=== PATIENT | female | born 1995 | race Caucasian/White ===

== ENCOUNTER → 2021-01-28 19:15 | Outpatient (BNVA) | payer OTHER, SELFPAY | PROVIDERS: Visit Provider Nurse Practitioner Family | DX: Z20.822 Contact with and (suspected) exposure to COVID-19 (principal) | CPT/HCPCS: 87635 ==

== ENCOUNTER → 2021-08-06 17:06 | Outpatient (BNVA) | payer MEDICAID, SELFPAY | PROVIDERS: PCP Family Medicine; Visit Provider Emergency Medicine | DX: Z20.822 Contact with and (suspected) exposure to COVID-19 (principal) | CPT/HCPCS: 87635 ==

== ENCOUNTER 2022-07-06 16:04 | Inpatient (IN) | payer MEDICAID, SELFPAY ==
[2022-07-06 16:06] VITALS: BP 101/70; PULSE 75; RESP 18; TEMP 36.5; O2SAT 99; BMI 20.3
--- NOTE | 2022-07-06 17:12 | ED.C_ITS ---
HPI - Psych General: Chief Complaint: Psychiatric Symptoms Stated Complaint: Psych Eval Time Seen by Provider: 07/06/22 16:25 Source: patient Mode of arrival: ambulatory Limitations: no limitations History of Present Illness: This patient has made her way to the emergency department because she is feeling quite overwhelmed sad and very depressed and not able to gain any pleasure from normal life activity. She states the symptoms seemingly have become much worse over the past 6 weeks. She relates t hem coincidently with the of her grandmother. She has had a rather storied past and tells me that she had approximately 5 children who have no all been adopted out because of her poor life choices. She previously used methamphetamines pretty heavily but states that she has not been using them regularly for quite a while. She does smoke marijuana occasionally but denies any alcohol or other street drugs. She is currently now and has a supportive spouse but as noted above seemingly cannot get any pleasure out of any life activities, has decreased her appetite and her food intakes because it does not taste well and does not sleep well. She states that she has had fleeting thoughts of if she was not around things will be better but she has no specific plan on self-harm. MD complaint: feels depressed Duration: getting worse History of same: No Context: significant life stressor Associated psychiatric symptoms: depression Associated symptoms: Reports depression and suicidal ideation; Deny auditory hallucinations or visual hallucinations Treatments prior to arrival: none Review of Systems Const: Denies: fever(s) or chills Eyes: Denies: change in vision ENMT: Denies: odynophagia, nasal discharge or nasal congestion Card: Denies: chest pain, palpitations, syncope or pre-syncope Resp: Denies: dyspnea, productive cough or non-productive cough GI: Denies: abdominal pain, nausea or vomiting : Denies: flank pain, difficulty voiding, dysuria, urinary frequency, vaginal bleeding or vaginal discharge Musc: Denies: neck pain, back pain, extremity pain or extremity swelling Skin/Breast: Denies: rash Neuro: Denies: headache(s), numbness in extremities, weakness in extremities or behavioral changes Psych: Reports: depression, sleeping less, hopelessness, loss of interest, change in appetite and suicidal ideation; Denies: visual hallucinations or auditory hallucinations Endo: Denies: polyuria or polydipsia Nicho/Lymph: Denies: easy bruising or easy bleeding PFSH ED PFSH: Social History Smoking and tobacco status: current every day smoker cigarettes Alcohol intake: never Female Reproductive History: Date of last menstrual period: 12/31/20 Spontaneous abortions: No Physical Exam Narrative: EXAM NARRATIVE: The patient readily and forthcoming the engaged in conversation however she is tearful and has a flat affect affect with depressed mood. Const: COMMON NORMALS: average body habitus, patient oriented x3 and alert GENERAL APPEARANCE: cooperative NUTRITIONAL APPEARANCE: thin HENMT: COMMON NORMALS: normocephalic, Normal nasal mucous membranes and turbinates present and moist oral mucous membranes HEAD & SCALP: normocephalic NOSE: Normal nasal mucous membranes and turbinates present Eye: COMMON NORMALS: Equal, round and reactive pupils present, EOMs intact bilaterally, conjunctivae normal and no scleral icterus CONJUNCTIVA: Yes conjunctivae normal PUPIL: Yes Equal, round and reactive pupils present Neck/C-Spine: COMMON NORMALS: full ROM Resp: COMMON NORMALS: normal respiratory effort and No use of accessory muscles Cardio: COMMON NORMALS: regular rate and Peripheral pulses 2+ throughout RATE: regular rate PERIPHERAL PULSES: Peripheral pulses 2+ throughout GI: COMMON NORMALS: Normal to inspection, nondistended, normoactive bowel sounds present Back/Pelvis: COMMON NORMALS: no thoracic nor lumbar tenderness and thoraco- lumbar ROM normal Extremity: COMMON NORMALS: normal to inspection, full ROM and capillary refill normal Neuro: COMMON NORMALS: patient oriented x3, moves all extremities, no focal motor deficits and gait normal SENSORIUM/ORIENTATION: Yes alert CRANIAL NERVES: Yes CN normal except as noted SPEECH: speech normal Psych: COMMON NORMALS: Normal thought process present, speech normal and denies hallucinations ACTIVITY/MOTOR BEHAVIOR: Yes appropriate eye contact SPEECH: Yes normal speech and Yes soft MOOD & AFFECT: Yes depressed mood, Yes sad and Yes tearful THOUGHT PROCESS: Normal thought process present THOUGHT CONTENT: Yes Normal thought content present INSIGHT: Fair insight present (Psych) Skin: COMMON NORMALS: no rashes or lesions noted and turgor normal GENERAL SKIN EXAM: no rashes or lesions noted and turgor normal Course Consultations: Consultation #1: Discussed with Dr. Segura who agreed to admit patient. Time: 18:01 Vital Signs: Vital signs: Vital Signs Temperature 97.7 F 07/06/22 17:59 Pulse Rate 75 07/06/22 17:59 Respiratory Rate 18 07/06/22 17:59 Blood Pressure 101/70 07/06/22 17:59 Pulse Oximetry 99 07/06/22 17:59 Oxygen Delivery Me thod 07/06/22 17:59 MDM - Psych Medical Decision Making Patient presents to our emergency department voluntarily because of progressive feelings of global sadness loss of pleasure in normal activities being tearful, poor sleep and thoughts of self-harm however no specific plan and has not engaged in any significant contemplation of suicide by her admission. No prior treatment for depression. Medically screened and found to be stable for inpatient evaluation and care. She is voluntary and willing to engage in therapy. Lab Data I reviewed the patient's lab results. : 07/06/22 17:25 07/06/22 17:25 Laboratory Results WBC 7.7 10^3/uL (4.0-10.0) 07/06/22 17:25 RBC 4.72 10^6/uL (4.1-5.3) 07/06/22 17:25 Hgb 14.2 g/dL (11.5-15.3) 07/06/22 17:25 Hct 43.5 % (37.0-47.0) 07/06/22 17:25 MCV 92.2 fl (81-99) 07/06/22 17:25 MCH 30.1 pg (28.0-34.0) 07/06/22 17:25 MCHC 32.6 g/dL (30.0-36.0) 07/06/22 17:25 RDW 14.6 % (12.1-15.1) 07/06/22 17:25 Plt Count 201 10^3/cmm (130-400) 07/06/22 17:25 MPV 11.7 fL (7.4-10.4) H 07/06/22 17:25 Neut % (Auto) 63.9 % 07/06/22 17:25 Lymph % (Auto) 24.7 % 07/06/22 17:25 [place] % (Auto) 4.6 % 07/06/22 17:25 Eos % (Auto) 6.2 % 07/06/22 17:25 Baso % (Auto) 0.3 % 07/06/22 17:25 Neut # (Auto) 4.92 10^3/uL (1.8-7.7) 07/06/22 17:25 Lymph # (Auto) 1.9 10^3/uL (0.8-4.8) 07/06/22 17:25 [place] # (Auto) 0.4 10^3/uL (0.2-0.9) 07/06/22 17:25 Eos # (Auto) 0.5 10^3/uL (0.0-0.8) 07/06/22 17:25 Baso # (Auto) 0.0 10^3/uL (0.0-0.1) 07/06/22 17:25 Nucleated RBC % (auto) 0 % 07/06/22 17: Nucleated RBCs # 0.0 /100WBC 07/06/22 17:25 Sodium 131 mmol/L (136-145) L 07/06/22 17:25 Potassium 3.4 mmol/L (3.5-5.1) L 07/06/22 17:25 Chloride 96 mmol/L (98-107) L 07/06/22 17:25 Carbon Dioxide 27 mmol/L (22-29) 07/06/22 17:25 Anion Gap 11.4 (5-19) 07/06/22 17:25 BUN 7 mg/dL (6-20) 07/06/22 17:25 Creatinine 0.6 mg/dL (0.5-0.9) 07/06/22 17:25 GFR Calculation 121.8 mL/min (90-130) 07/06/22 17:25 Glucose 82 mg/dL (65-115) 07/06/22 17:25 Calculated Osmolality 269 mOsm/kg (285-295) L 07/06/22 17:25 Calcium 9.4 mg/dL (8.5-10.5) 07/06/22 17:25 Total Bilirubin 0.7 mg/dL (0.15-1.2) 07/06/22 17:25 AST 15 U/L (0-32) 07/06/22 17:25 ALT < 5 U/L (0-33) 07/06/22 17:25 Alkaline Phosphatase 57 U/L (35-105) 07/06/22 17:25 Total Protein 7.6 g/dL (6.6-8.7) 07/06/22 17:25 Albumin 4.3 g/dL (3.5-5.2) 07/06/22 17:25 Globulin 3.3 g/dL (1.3-4.6) 07/06/22 17:25 HCG, Qual Negative (Negative) 07/06/22 16:14 Salicylates < 0.3 mg/dL (3-10) L 07/06/22 17:25 Acetaminophen < 5.0 ug/mL (10-30) L 07/06/22 17:25 Discharge Plan Discharge Patient Disposition: Admitted As Inpatient Clinical Impression: Depression, Suicidal ideation Condition: Stable Prescriptions: No Action No Known Home Medications Referrals: Kenn Okeefe MD [Primary Care Provider] - Coding Level of Care Code ED Manufacturer Representative for Chg Fwd Exam Comprehensive
[2022-07-06 17:27] LABS: HCG Qualitative Urine. Negative (Negative)
[2022-07-06 17:41] LABS: Basophils % 0.3 %; Eosinophils # 0.5 10^3/uL (0.0-0.8); Eosinophils % 6.2 %; Hematocrit 43.5 % (37.0-47.0); Hemoglobin 14.2 g/dL (11.5-15.3); Lymphocytes # 1.9 10^3/uL (0.8-4.8); Lymphocytes % 24.7 %; Mean Corpuscular HGB Conc 32.6 g/dL (30.0-36.0); Mean Corpuscular Hemoglobin 30.1 pg (28.0-34.0); Mean Corpuscular Volume 92.2 fl (81-99); Mean Platelet Volume 11.7 fL (7.4-10.4); Monocytes # 0.4 10^3/uL (0.2-0.9); Monocytes % 4.6 %; Neutrophils # 4.92 10^3/uL (1.8-7.7); Neutrophils % 63.9 %; Nucleated Red Blood Cells % 0 %; Platelet Count 201 10^3/cmm (130-400); Red Blood Count 4.72 10^6/uL (4.1-5.3); Red Cell Distribution Width 14.6 % (12.1-15.1); White Blood Count 7.7 10^3/uL (4.0-10.0)
[2022-07-06 17:56] LABS: Alanine Aminotransferase < 5 U/L (0-33); Albumin Level 4.3 g/dL (3.5-5.2); Alkaline Phosphatase 57 U/L (35-105); Anion Gap 11.4 (5-19); Aspartate Amino Transferase 15 U/L (0-32); Blood Urea Nitrogen 7 mg/dL (6-20); Calcium 9.4 mg/dL (8.5-10.5); Carbon Dioxide 27 mmol/L (22-29); Chloride 96 mmol/L (98-107); Creatinine Clr Calc Pharmacy 137.0012; Globulin 3.3 g/dL (1.3-4.6); Glomerular Filtration Rate 121.8 mL/min (90-130); Glucose 82 mg/dL (65-115); Osmolality Calculated 269 mOsm/kg (285-295); Potassium 3.4 mmol/L (3.5-5.1); Sodium 131 mmol/L (136-145); Total Bilirubin 0.7 mg/dL (0.15-1.2); Total Protein 7.6 g/dL (6.6-8.7)
[2022-07-06 17:58] LABS: Acetaminophen < 5.0 ug/mL (10-30); Salicylate < 0.3 mg/dL (3-10)
[2022-07-06 17:59] VITALS: BP 101/70; PULSE 75; RESP 18; TEMP 36.5; O2SAT 99
[2022-07-06 18:32] VITALS: BP 96/67; PULSE 73; RESP 18; TEMP 36.4; O2SAT 98
[2022-07-06 19:35] LABS: Alcohol Level < 10 mg/dL (0-10)
[2022-07-06 20:10] VITALS: BP 99/60; PULSE 76; RESP 16; TEMP 36.8; O2SAT 100
[2022-07-07 06:00] VITALS: BP 97/63; PULSE 56; RESP 16; TEMP 36.7; O2SAT 99
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
[2022-07-07 14:00] VITALS: BP 102/69; PULSE 63; RESP 16; TEMP 36.6; O2SAT 98
[2022-07-07] MEDS: nicotine 2 mg Gum BUCCAL ×2 (15:06→18:05)
[2022-07-07 15:37] LABS: Amphetamines Screen Urine Negative (Negative); Barbiturates Screen Urine Negative (Negative); Benzodiazepines Screen Urine Negative (Negative); Cocaine Screen Urine Negative (Negative); Opiate Screen Urine Negative (Negative); PCP Screen Urine Negative (Negative); THC Screen Urine Positive (Negative)
[2022-07-07 17:20] VITALS: BP 102/69; PULSE 63; RESP 16; TEMP 36.6; O2SAT 98
--- NOTE | 2022-07-07 17:44 | P.NPUDS_ITS ---
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 0.6 mg/dL (0.5-0. 9) 07/06/22 17:25 GFR Calculation 121.8 mL/min (90- 130) 07/06/22 17:25 Glucose 82 mg/dL (65-115) 07/06/22 17:25 Calculated Osmolal ity 269 mOsm/kg (285- 295) L 07/06/22 17:25 Calcium 9.4 mg/dL (8.5-10 .5) 07/06/22 17:25 Total Bilirubin 0.7 mg/dL (0.15-1 .2) 07/06/22 17:25 AST 15 U/L (0-32) 07/06/22 17:25 ALT < 5 U/L (0-33) 07/06/22 17:25 Alkaline Phosphata se 57 U/L (35-105) 07/06/22 17:25 Total Protein 7.6 g/dL (6.6-8.7 ) 07/06/22 17:25 Albumin 4.3 g/dL (3.5-5.2 ) 07/06/22 17:25 Globulin 3.3 g/dL (1.3-4.6 ) 07/06/22 17:25 HCG, Qual Negative (Negati ve) 07/06/22 16:14 Salicylates < 0.3 mg/dL (3-10 ) L 07/06/22 17:25 Urine Opiates Scre en Negative ng/mL (N egative) 07/06/22 14:50 Acetaminophen < 5.0 ug/mL (10-3 0) L 07/06/22 17:25 Ur Barbiturates Sc reen Negative ng/mL (N egative) 07/06/22 14:50 Ur Phencyclidine S crn Negative ng/mL (N egative) 07/06/22 14:50 Ur Amphetamines Sc reen Negative ng/mL (N egative) 07/06/22 14:50 U Benzodiazepines Scrn Negative ng/mL (N egative) 07/06/22 14:50 Urine Cocaine Scre en Negative ng/mL (N egative) 07/06/22 14:50 U Marijuana (THC) Screen Positive ng/mL (N egative) H 07/06/22 14:50 Ethyl Alcohol < 10 mg/dL (0-10) 07/06/22 17:25 Vitals: Last Vital Signs Temp 98 F 07/07/22 17:20 Pulse 63 07/07/22 17:20 Resp 16 07/07/22 17:20 BP 102/69 07/07/22 17:20 Pulse Ox 98 07/07/22 17:20 O2 Del Method 07/07/22 14:00 Discharge Plan Discharge Patient Disposition: Home Condition: Stable Prescriptions: No Action No Known Home Medications Discharge Orders: Discharge Order (Routine); Ordered 07/07/22 Ordered By: Shawn Segura Referrals: Kenn Okeefe MD [Primary Care Provider] - Discharge Diet: Regular Discharge Activity: Resume usual activity Patient Instructions: Generalized Anxiety Disorder, Depression, Opioid Safety Discharge Attestations NPU Time Spent in Discharge Care*: greater than 30 min Specific Discharge Activities: Specific discharge activities: educating patient, discussing with briefcase sewer/social workers/dc planners, documenting/other paperwork and evaluating patient/reviewing data Coding Level of Care Code Acute Chg FW DC note Diagnoses Depression F32.A Suicidal ideation R45.851
== END 2022-07-07 19:00 | disposition home or self-care (01) | DRG 881 ==
LOC: ER 18:01 → NP 18:14
PROVIDERS: Admitting Provider Psychiatry & Neurology Psychiatry; Emergency Provider Emergency Medicine; PCP Family Medicine; Visit Provider Psychiatry & Neurology Psychiatry
DX: F32.A Depression, unspecified (principal); R45.851 Suicidal ideations; F17.210 Nicotine dependence, cigarettes, uncomplicated; F15.21 Other stimulant dependence, in remission; Z63.4 Disappearance and death of family member; Z81.8 Family history of other mental and behavioral disorders; Z81.4 Family history of other substance abuse and dependence; Z65.3 Problems related to other legal circumstances; Z91.49 Other personal history of psychological trauma, not elsewhere classified
CPT/HCPCS: 80053; 80306; 80307; 81025; 85025; 97165; 99285